=== PATIENT | female | born 1950 | race Caucasian/White ===

== ENCOUNTER 2016-09-08 14:18 | Outpatient (CLI) | payer MEDICARE, OTHER ==
[2016-09-09 08:00] LABS: Calcium 9.9 mg/dL (7.8-10.44)
== END 2016-09-08 14:19 | disposition home or self-care (01) ==
LOC: NAV LABSP 14:18
PROVIDERS: ATTEND Nurse Practitioner Family
DX: I10 Essential (primary) hypertension (principal); E03.9 Hypothyroidism, unspecified; D64.9 Anemia, unspecified; Z79.899 Other long term (current) drug therapy
CPT/HCPCS: 82310; 82607; 82728; 83540; 83550; 83970; 84439; 84479

== ENCOUNTER 2016-09-14 15:24 | Outpatient (CLI) | payer MEDICARE, OTHER | END 2016-09-14 15:25 | disposition home or self-care (01) | LOC: NAV LABSP 15:24 | PROVIDERS: ATTEND Nurse Practitioner Family | DX: D64.9 Anemia, unspecified (principal); D52.9 Folate deficiency anemia, unspecified | CPT/HCPCS: 82746 ==

== ENCOUNTER 2016-12-13 12:40 | Emergency (ER) | payer MEDICARE, OTHER ==
--- NOTE | 2016-12-13 14:40 | RAD ---
PA AND LATERAL CHEST: HISTORY: PA AND LATERAL CHEST: HISTORY: Chest injury. COMPARISON: 03/07/16 study. FINDINGS: Heart size is within normal limits. Mediastinal structures appear unremarkable. Surgical clips are noted in the right axilla. There is linear scarring in both lung motta. A nodular density in the right upper lobe appears stable. IMPRESSION: 1. Right upper lobe nodular density which appears stable as compared to the prior study. 2. Linear scarring in the lung bases. POS: [facility]
== END 2016-12-13 14:06 | disposition home or self-care (01) ==
LOC: NAV ERS 12:40
DX: S20.211A Contusion of right front wall of thorax, initial encounter (principal); I10 Essential (primary) hypertension; M81.0 Age-related osteoporosis without current pathological fracture; J44.9 Chronic obstructive pulmonary disease, unspecified; F41.9 Anxiety disorder, unspecified; F32.9 Major depressive disorder, single episode, unspecified; Z79.891 Long term (current) use of opiate analgesic; Z79.899 Other long term (current) drug therapy; W18.30XA Fall on same level, unspecified, initial encounter
CPT/HCPCS: 71020

== ENCOUNTER 2019-01-13 09:30 | Emergency (ER) | payer MEDICARE, OTHER ==
--- NOTE | 2019-01-13 10:24 | CT ---
CT Brain WO Con: 01/13/2019 9:53 AM CLINICAL HISTORY: Injury, pain, related to fall. COMPARISON: None. FINDINGS: Hemorrhage: None. Ventricular system: Normal in size and morphology for the patient's age. Cerebral parenchyma: Microvascular ischemic disease Midline shift: None. Mass: No mass effect. Calvarium: Normal. Visualized Paranasal sinuses: Clear. IMPRESSION: No acute intracranial abnormalities. Microvessel ischemic disease of the cerebral white matter, mild in degree.
--- NOTE | 2019-01-13 10:25 | CT ---
CT cervical spine noncontrast HISTORY: Fall. Neck injury. FINDINGS: Vertebral body heights are maintained. Extensive motion artifact. Defects through the base of the odontoid process on the sagittal images are shown to be motion artifact on the axial images. Minimal degenerative spondylolisthesis at the C4-5 level, accentuated by motion artifact. Osteophytos is throughout the vertebral bodies and facets. Cervicothoracic junction is intact. Multilevel disc space narrowing. Heterogeneous nodularity at the inferior pole left thyroid lobe. IMPRESSION: Prominent degenerative changes cervical spine. No acute osseous abnormalities are demonst rated. Extensive motion artifact as described above.
== END 2019-01-13 11:00 | disposition home or self-care (01) ==
LOC: NAV ERS 09:30
DX: S00.83XA Contusion of other part of head, initial encounter (principal); J44.9 Chronic obstructive pulmonary disease, unspecified; I10 Essential (primary) hypertension; F41.9 Anxiety disorder, unspecified; F32.9 Major depressive disorder, single episode, unspecified; Z79.899 Other long term (current) drug therapy; W01.198A Fall on same level from slipping, tripping and stumbling with subsequent striking against other object, initial encounter
CPT/HCPCS: 70450; 72125